=== PATIENT | female | born 1965 | race Two or more races ===

== ENCOUNTER 2018-01-08 18:05 | Emergency (ER) | payer OTHER ==
[2018-01-08] MEDS ORDERED: ASPIRIN 81 MG TABLET, CHEWABLE PO ONE (19:01)
--- NOTE | 2018-01-08 19:01 | ER Document Report ---
ED Medical Screen (RME) - General Chief Complaint: Chest Pain Stated Complaint: CHEST PAIN Time Seen by Provider: 01/08/18 18:58 Notes: Patient is having an episode of palpitations that started about an hour and a half ago. Her symptoms include breathing fast, nausea, and vomited here in the ER. She has had this problem in the past, the most recent episode being in September of this year. She has severe hypertension for which she is currently on clonidine, amlodipine, and Irbasartin. Patient is very anxious. TRAVEL OUTSIDE OF THE [place] IN LAST 30 DAYS: No - Related Data Allergies/Adverse Reactions: No Known Allergies Allergy (Unverified 01/08/18 18:09) Past Medical History Renal/ Medical History: Denies: Hx Peritoneal Dialysis Physical Exam - Vital signs Vitals: Temp Pulse Resp BP Pulse Ox 98.8 F 102 H 14 148/84 H 96 01/08/18 18:18 01/08/18 18:18 01/08/18 18:18 01/08/18 18:18 01/08/18 18:18 Course - Vital Signs Vital signs: Temp Pulse Resp BP Pulse Ox 98.8 F 102 H 14 148/84 H 96 01/08/18 18:18 01/08/18 18:18 01/08/18 18:18 01/08/18 18:18 01/08/18 18:18 - Laboratory Result Diagrams: 01/08/18 19:09 01/08/18 19:09 Laboratory results interpreted by me: 01/08/18 19:09 Potassium 3.5 L Glucose 194 H Total Protein 8.5 H Doctor's Discharge - Discharge Referrals: BELEN LAND MD [Primary Care Provider] - Follow up as needed
[2018-01-08 19:23] LABS: ABSOLUTE LYMPHOCYTES (AUTO) 1.7 10^3/uL (0.5-4.7); ABSOLUTE MONOCYTES (AUTO) 0.5 10^3/uL (0.1-1.4); ABSOLUTE NEUT (AUTO) 5.4 10^3/uL (1.7-8.2); BASOPHILS % (AUTO) 0.3 % (0-2); EOSINOPHILS % (AUTO) 0.1 % (0-6); HEMATOCRIT 44.5 % (36.0-47.0); HEMOGLOBIN 15.4 g/dL (12.0-15.5); LYMPHOCYTES % (AUTO) 22.6 % (13-45); MEAN CORPUSCULAR HEMOGLOBIN 30.1 pg (27.0-33.4); MEAN CORPUSCULAR HGB CONC 34.6 g/dL (32.0-36.0); MEAN CORPUSCULAR VOLUME 87 fl (80-97); MONOCYTES % (AUTO) 6.5 % (3-13); PLATELET COUNT 293 10^3/uL (150-450); RED BLOOD COUNT 5.12 10^6/uL (3.72-5.28); RED CELL DISTRIBUTION WIDTH 13.1 % (11.5-14.0); SEGMENTED NEUTROPHILS % (AUTO) 70.5 % (42-78); TOTAL CELLS COUNTED % (AUTO) 100 %; WHITE BLOOD COUNT 7.7 10^3/uL (4.0-10.5)
[2018-01-08 19:27] LABS: INTERNATIONAL RATION (INR) 0.93; PROTHROMBIN TIME 12.9 SEC (11.4-15.4)
[2018-01-08] MEDS ORDERED: LORAZEPAM 1 MG TABLET PO ONE (19:29)
[2018-01-08 19:32] LABS: ALANINE AMINOTRANSFERASE 28 U/L (9-52); ALBUMIN 4.9 g/dL (3.5-5.0); ALKALINE PHOSPHATASE 70 U/L (38-126); ASPARTATE AMINO TRANSFERASE 25 U/L (14-36); BILIRUBIN,DIRECT 0.3 mg/dL (0.0-0.4); BILIRUBIN,TOTAL 0.8 mg/dL (0.2-1.3); BLOOD UREA NITROGEN 14 mg/dL (7-20); CREATINE KINASE 51 U/L (30-135); GLUCOSE 194 mg/dL (75-110); POTASSIUM 3.5 mmol/L (3.6-5.0); TOTAL PROTEIN 8.5 g/dL (6.3-8.2)
[2018-01-08 19:37] LABS: CARBON DIOXIDE 22 mmol/L (22-30); CHLORIDE 102 mmol/L (98-107); SODIUM 143.2 mmol/L (137-145)
[2018-01-08 19:39] LABS: ANION GAP 19 (5-19); D-DIMER < 0.27 ug/mL (0.00-0.50)
[2018-01-08 19:45] LABS: CREATINE KINASE MB < 0.22 ng/mL (<4.55); TROPONIN I < 0.012 ng/mL
--- NOTE | 2018-01-08 19:47 | RADIOLOGY REPORT (SQ) ---
EXAM DESCRIPTION: CHEST SINGLE VIEW COMPLETED DATE/TIME: 01/08/2018 7:22 pm REASON FOR STUDY: Short of breath and tachycardia COMPARISON: None. EXAM PARAMETERS: NUMBER OF VIEWS: One view. TECHNIQUE: Single frontal radiographic view of the chest acquired. RADIATION DOSE: NA LIMITATIONS: None. FINDINGS: LUNGS AND PLEURA: No opacities, masses or pneumothorax. No pleural effusion. MEDIASTINUM AND HILAR STRUCTURES: No masses. Contour normal. HEART AND VASCULAR STRUCTURES: Heart normal in size. Normal vasculature. BONES: No acute findings. HARDWARE: None in the chest. OTHER: No other significant finding. IMPRESSION: NO ACUTE RADIOGRAPHIC FINDING IN THE CHEST. TECHNICAL DOCUMENTATION: JOB ID: [id number] 2010 [employer]- All Rights Reserved Reading location - IP/workstation name: [email or web address]
[2018-01-08 19:52] LABS: FREE T4 (FREE THYROXINE) 1.19 ng/dL (0.78-2.19)
[2018-01-08 20:03] LABS: THYROID STIMULATING HORMONE 2.27 uIU/mL (0.47-4.68)
[2018-01-08] MEDS ORDERED: ATENOLOL 50 MG TABLET PO ONE (20:15)
--- NOTE | 2018-01-08 20:21 | ER Document Report ---
ED General - General Chief Complaint: Chest Pain Stated Complaint: CHEST PAIN Time Seen by Provider: 01/08/18 18:58 Notes: Patient is a 52 year old female with a past medical history of essential hypertension, anxiety and recurrent palpitations who presents with an episode of palpitations. Although in triage her complaint was listed as chest pain the patient and her note that this is not all her concern rather an episode of palpitations this year while she was watching television with her . She states that she has for the past several years had intermittent palpitations that when she was living in the [facility] were treated with a beta-jimmy but she has been off this medication since September. She has discussed her intermittent palpitations with her primary care doctor but states that they did not wish to restart any medication at that time. She states that approximately once every 1-2 months she has not had episodes similar to the night where she spontaneously develops palpitations and then becomes anxious thereafter. She is clear to state that she does not feel anxiety is triggering these episodes but that she does become anxious in response to these episodes of palpitations. Nothing seems to trigger the episodes and they do often resolve spontaneously. She denies any associated syncope, lightheadedness, weakness, numbness or chest pain. Of note, the patient does admit to checking her blood pressure 4-5 times daily stating she does so as her parents both from strokes. At time of my assessment she states that she overall feels much better and denies any ongoing symptoms. TRAVEL OUTSIDE OF THE [place] IN LAST 30 DAYS: No - Related Data Allergies/Adverse Reactions: No Known Allergies Allergy (Unverified 01/08/18 18:09) Past Medical History - General Information source: Patient - Social History Smoking Status: Never Smoker Frequency of alcohol use: None Drug Abuse: None Lives with: Spouse/Significant other Family History: Reviewed & Not Pertinent Patient has suicidal ideation: No Patient has homicidal ideation: No - Past Medical History Cardiac Medical History: Reports: Hx Hypertension Renal/ Medical History: Denies: Hx Peritoneal Dialysis Review of Systems - Review of Systems Notes: Constitutional: Negative for fever. HENT: Negative for sore throat. Eyes: Negative for visual changes. Cardiovascular: Negative for chest pain. Positive for palpitations Respiratory: Negative for shortness of breath. Gastrointestinal: Negative for abdominal pain, vomiting or diarrhea. Genitourinary: Negative for dysuria. Musculoskeletal: Negative for back pain. Skin: Negative for rash. Neurological: Negative for headaches, weakness or numbness. 10 point ROS negative except as marked above and in HPI. Physical Exam - Vital signs Vitals: Temp Pulse Resp BP Pulse Ox 98.8 F 102 H 14 148/84 H 96 01/08/18 18:18 01/08/18 18:18 01/08/18 18:18 01/08/18 18:18 01/08/18 18:18 Interpretation: Tachycardic Notes: PHYSICAL EXAMINATION: GENERAL: Well-appearing, well-nourished and in no acute distress. HEAD: Atraumatic, normocephalic. EYES: Pupils equal round and reactive to light, extraocular movements intact, sclera anicteric, conjunctiva are normal. ENT: nares patent, oropharynx clear without exudates. Moist mucous membranes. NECK: Normal range of motion, supple without lymphadenopathy LUNGS: Breath sounds clear to auscultation bilaterally and equal. No wheezes rales or rhonchi. HEART: Regular rate and rhythm without murmurs ABDOMEN: Soft, nontender, normoactive bowel sounds. No guarding, no rebound. No masses appreciated. EXTREMITIES: Normal range of motion, no pitting or edema. No cyanosis. NEUROLOGICAL: No focal neurological deficits. Moves all extremities spontaneously and on command. PSYCH: Normal mood, normal affect. SKIN: Warm, Dry, normal turgor, no rashes or lesions noted. Course - Re-evaluation Re-evalutation: 01/08/18 20:16 Patient presents with palpitations but is in no acute distress. Vitals within normal limits at time of arrival exception of mild tachycardia which has since resolved.. EKG unremarkable with a normal sinus rhythm. Laboratories are unremarkable. Patient denies any chest pain, shortness of breath, or vomiting. At this time based on exam and history do not suspect a new onset arrhythmia, ACS, acute pulmonary embolus, aortic dissection. Labs unremarkable. Patient used to be on a beta-jimmy as needed for palpitations and associated anxiety which I will restart as an as needed medication. Patient encouraged to follow- up with their primary care physician as well as cardiology and a referral has been provided. At this time will discharge with return precautions and follow- up recommendations. Verbal discharge instructions given a the bedside and opportunity for questions given. Medication warnings reviewed. Patient is in agreement with this plan and has verbalized understanding of return precautions and the need for primary care follow-up in the next 24-72 hours. - Vital Signs Vital signs: Temp Pulse Resp BP Pulse Ox 98.8 F 102 H 14 120/83 98 01/08/18 18:18 01/08/18 18:18 01/08/18 20:00 01/08/18 20:00 01/08/18 20:00 - Laboratory Result Diagrams: 01/08/18 19:09 01/08/18 19:09 Laboratory results interpreted by me: 01/08/18 19:09 Potassium 3.5 L Glucose 194 H Total Protein 8.5 H - EKG Interpretation by Me Additional EKG results interpreted by me: 01/08/18 20:17 Sinus tachycardia. Rate 113. No ST elevations or depressions. QTC is 456. Discharge - Discharge Clinical Impression: Palpitations, Essential hypertension, Anxiety reaction Condition: Good Disposition: HOME, SELF-CARE Additional Instructions: Please follow-up with your primary care doctor or a elementary assistant teacher regarding your palpitations. Return if you develop chest pain, shortness of breath, pass out, or have any other symptoms that are worrisome to you. You can take atenolol as prescribed if you have episodes of palpitations that do not resolve after several minutes. We discussed high blood pressure today. High blood pressure is a long-term risk factor for multiple medical problems including heart attack and stroke. However, the blood pressure in of itself will not cause you to have an acute stroke or heart attack over the course of just several days or weeks. Please take your blood pressure every other morning at the same time. Please avoid checking her blood pressure multiple times daily as this does not provide any benefit to you and can cause severe stress and anxiety. Return if you develop headache, weakness, numbness, chest pain, pass out, or have any other symptoms that are concerning to you. Prescriptions: Atenolol [Tenormin] 12.5 mg PO BID PRN #30 tablet PRN Reason: Referrals: BELEN LAND MD [Primary Care Provider] - Follow up as needed GERRY FERNANDEZ MD [ACTIVE STAFF] - Follow up as needed
[2018-01-08 20:45] VITALS: BP 120/83
--- NOTE | 2018-01-08 21:08 | EKG REPORT ---
SEVERITY:- OTHERWISE NORMAL ECG - SINUS TACHYCARDIA : Confirmed by: Reid Ponce MD 08-Jan-2018 21:08:08
== END 2018-01-08 20:45 | disposition home or self-care (01) ==
LOC: ER 18:05
DX: R00.2 Palpitations (principal); I10 Essential (primary) hypertension; F41.9 Anxiety disorder, unspecified; R07.9 Chest pain, unspecified
CPT/HCPCS: 36415; 71045; 80053; 82550; 82553; 84439; 84443; 84484; 85025; 85379; 85610; 93005; 93010; 99285

== ENCOUNTER 2018-03-07 06:58 | Emergency (ER) | payer OTHER ==
--- NOTE | 2018-03-07 07:32 | ER Document Report ---
ED General - General Chief Complaint: High Blood Pressure Stated Complaint: BLOOD PRESSURE PROBLEMS Time Seen by Provider: 03/07/18 07:23 TRAVEL OUTSIDE OF THE [place] IN LAST 30 DAYS: No - HPI Patient complains to provider of: Hypertension type Notes: Patient coming in for evaluation of hypertension. Patient is prescribed blood pressure medications patient states woke up this morning with a blood pressure did take her blood pressure medication just prior to arrival. Patient otherwise resting in the stretcher stating she is feeling better now. Patient denies any hip pain chest pain abdominal pain fevers chills nausea vomiting - Related Data Allergies/Adverse Reactions: No Known Allergies Allergy (Unverified 01/08/18 18:09) Past Medical History - Social History Smoking Status: Unknown if Ever Smoked Family History: Reviewed & Not Pertinent - Past Medical History Cardiac Medical History: Reports: Hx Hypertension Renal/ Medical History: Denies: Hx Peritoneal Dialysis Review of Systems - Review of Systems Constitutional: Other - htn EENT: No symptoms reported Cardiovascular: No symptoms reported Respiratory: No symptoms reported Gastrointestinal: No symptoms reported Genitourinary: No symptoms reported Female Genitourinary: No symptoms reported Musculoskeletal: No symptoms reported Skin: No symptoms reported Hematologic/Lymphatic: No symptoms reported Neurological/Psychological: No symptoms reported Physical Exam - Vital signs Vitals: Temp Pulse Resp BP Pulse Ox 97.5 F 106 H 24 H 160/95 H 100 03/07/18 07:15 03/07/18 07:15 03/07/18 07:15 03/07/18 07:15 03/07/18 07:15 Interpretation: Normal - General General appearance: Appears well, Alert - HEENT Head: Normocephalic, Atraumatic Eyes: Normal Pupils: PERRL - Respiratory Respiratory status: No respiratory distress Chest status: Nontender Breath sounds: Normal Chest palpation: Normal - Cardiovascular Rhythm: Regular Heart sounds: Normal auscultation Murmur: No - Abdominal Inspection: Normal Distension: No distension Bowel sounds: Normal Tenderness: Nontender Organomegaly: No organomegaly - Back Back: Normal, Nontender - Extremities General upper extremity: Normal inspection, Nontender, Normal color, Normal ROM , Normal temperature General lower extremity: Normal inspection, Nontender, Normal color, Normal ROM , Normal temperature, Normal weight bearing. No: Carline's sign - Neurological Neuro grossly intact: Yes Cognition: Normal Orientation: AAOx4 Jorge Coma Scale Eye Opening: Spontaneous Sandoval Coma Scale Verbal: Oriented Jorge Coma Scale Motor: Obeys Commands Jorge Coma Scale Total: 15 Speech: Normal Motor strength normal: LUE, RUE, LLE, RLE Sensory: Normal - Psychological Associated symptoms: Normal affect, Normal mood - Skin Skin Temperature: Warm Skin Moisture: Dry Skin Color: Normal Course - Re-evaluation Re-evalutation: 03/07/18 14:59 No concerning findings on physical examination. Patient will be discharged on follow-up primary care physician. - Vital Signs Vital signs: Temp Pulse Resp BP Pulse Ox 97.8 F 82 21 H 155/80 H 99 03/07/18 08:33 03/07/18 08:33 03/07/18 08:33 03/07/18 08:33 03/07/18 08:33 Discharge - Discharge Clinical Impression: Hypertension Qualifiers: Hypertension type: essential hypertension Qualified Code(s): I10 - Essential ( primary) hypertension Disposition: HOME, SELF-CARE Instructions: High Blood Pressure ([facility]) Additional Instructions: Follow-up with your primary care physician. Your physical examination does not show any acute abnormal 3. Follow-up with your primary care physician or your follow-up appointments for further management of your blood pressure medication. Please continue all previously prescribed medications as directed by her doctor Referrals: BELEN LAND MD [Primary Care Provider] - Follow up as needed
[2018-03-07 08:34] VITALS: BP 155/80
== END 2018-03-07 08:00 | disposition home or self-care (01) ==
LOC: ER 06:58
DX: I10 Essential (primary) hypertension (principal)
CPT/HCPCS: 99283

== ENCOUNTER 2018-04-03 18:32 | Emergency (ER) | payer OTHER ==
--- NOTE | 2018-04-03 19:33 | ER Document Report ---
ED Medical Screen (RME) - General Chief Complaint: Shortness Of Breath Stated Complaint: RAPID HEART RATE Time Seen by Provider: 04/03/18 19:20 TRAVEL OUTSIDE OF THE [place] IN LAST 30 DAYS: No - HPI Notes: 04/03/18 19:30 Patient is a 52-year-old female with a history of essential hypertension, intermittent episodes of palpitations, and anxiety who presents to the ED complaining of having another episode of palpitations prior to arrival. Patient states that she did have symptoms during her initial stay in the waiting room, but symptoms have since improved and she is starting to feel better. Patient states that she has not had any pain and denies any other significant cardiac history. 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 Patient states that she does check her blood pressure and when she feels that her blood pressure is up her heart rate starts to increase. She is on atenolol. No other concerns or complaints. Denies any headache, fever, URI, sore throat, chest pain, syncope, cough, shortness of breath, wheeze, dyspnea, abdominal pain, nausea/vomiting/diarrhea, urinary retention, dysuria, hematuria, or rash. I have treated and performed a rapid initial assessment of this patient. A comprehensive ED assessment and evaluation of the patient, analysis of test results and completion of medical decision making process will be conducted by additional ED providers. PHYSICAL EXAMINATION: HR currently 76 on exam. GENERAL: Well-appearing, well-nourished and in no acute distress. A&Ox4. Answers questions appropriately. LUNGS: Breath sounds clear to auscultation bilaterally and equal. No wheezes rales or rhonchi. HEART: Regular rate and rhythm without murmurs, rubs, gallops. Extremities: No cyanosis, clubbing, or edema b/l. NEUROLOGICAL: Normal speech, normal gait. PSYCH: tearful, normal affect. - Related Data Allergies/Adverse Reactions: No Known Allergies Allergy (Unverified 01/08/18 18:09) Past Medical History - Social History Chew tobacco use (# tins/day): No Frequency of alcohol use: None Drug Abuse: None - Past Medical History Cardiac Medical History: Reports: Hx Hypertension Renal/ Medical History: Denies: Hx Peritoneal Dialysis Physical Exam - Vital signs Vitals: Temp Pulse Resp BP Pulse Ox 97.9 F 94 28 H 155/86 H 100 04/03/18 18:40 04/03/18 18:40 04/03/18 18:40 04/03/18 18:40 04/03/18 18:40 Course - Vital Signs Vital signs: Temp Pulse Resp BP Pulse Ox 97.9 F 94 28 H 155/86 H 100 04/03/18 18:40 04/03/18 18:40 04/03/18 18:40 04/03/18 18:40 04/03/18 18:40 Doctor's Discharge - Discharge Referrals: BELEN LAND MD [Primary Care Provider] - Follow up as needed
--- NOTE | 2018-04-03 19:52 | RADIOLOGY REPORT (SQ) ---
EXAM DESCRIPTION: CHEST SINGLE VIEW COMPLETED DATE/TIME: 04/03/2018 7:40 pm REASON FOR STUDY: shortness of breath COMPARISON: 01/08/2018. EXAM PARAMETERS: NUMBER OF VIEWS: One view. TECHNIQUE: Single frontal radiographic view of the chest acquired. RADIATION DOSE: NA LIMITATIONS: None. FINDINGS: LUNGS AND PLEURA: No opacities, masses or pneumothorax. No pleural effusion. MEDIASTINUM AND HILAR STRUCTURES: No masses. Contour normal. HEART AND VASCULAR STRUCTURES: Heart normal in size. Normal vasculature. BONES: No acute findings. HARDWARE: None in the chest. OTHER: No other significant finding. IMPRESSION: NO ACUTE RADIOGRAPHIC FINDING IN THE CHEST. TECHNICAL DOCUMENTATION: JOB ID: [id number] [employer]- All Rights Reserved Reading location - IP/workstation name: [email or web address]
[2018-04-03 20:53] LABS: ABSOLUTE LYMPHOCYTES (AUTO) 1.1 10^3/uL (0.5-4.7); ABSOLUTE MONOCYTES (AUTO) 0.6 10^3/uL (0.1-1.4); ABSOLUTE NEUT (AUTO) 10.3 10^3/uL (1.7-8.2); BASOPHILS % (AUTO) 0.2 % (0-2); EOSINOPHILS % (AUTO) 0.1 % (0-6); HEMATOCRIT 42.8 % (36.0-47.0); HEMOGLOBIN 14.3 g/dL (12.0-15.5); LYMPHOCYTES % (AUTO) 9.3 % (13-45); MEAN CORPUSCULAR HEMOGLOBIN 29.7 pg (27.0-33.4); MEAN CORPUSCULAR HGB CONC 33.5 g/dL (32.0-36.0); MEAN CORPUSCULAR VOLUME 89 fl (80-97); MONOCYTES % (AUTO) 5.2 % (3-13); PLATELET COUNT 273 10^3/uL (150-450); RED BLOOD COUNT 4.82 10^6/uL (3.72-5.28); RED CELL DISTRIBUTION WIDTH 12.7 % (11.5-14.0); SEGMENTED NEUTROPHILS % (AUTO) 85.2 % (42-78); TOTAL CELLS COUNTED % (AUTO) 100 %; WHITE BLOOD COUNT 12.1 10^3/uL (4.0-10.5)
[2018-04-03 21:14] LABS: APPEARANCE,URINE CLEAR; BILIRUBIN,URINE NEGATIVE (NEGATIVE); COLOR,URINE YELLOW; GLUCOSE, URINE NEGATIVE (NEGATIVE); KETONES,URINE TRACE mg/dL (NEGATIVE); LEUKOCYTE ESTERASE,URINE SMALL (NEGATIVE); NITRITE,URINE NEGATIVE (NEGATIVE); PROTEIN,URINE NEGATIVE (NEGATIVE); URINE SPECIFIC GRAVITY 1.011; UROBILINOGEN,URINE NEGATIVE mg/dL (<2.0)
[2018-04-03 21:29] LABS: ALANINE AMINOTRANSFERASE 23 U/L (9-52); ALBUMIN 4.4 g/dL (3.5-5.0); ALKALINE PHOSPHATASE 67 U/L (38-126); ANION GAP 13 (5-19); ASPARTATE AMINO TRANSFERASE 27 U/L (14-36); BILIRUBIN,DIRECT 0.3 mg/dL (0.0-0.4); BILIRUBIN,TOTAL 0.7 mg/dL (0.2-1.3); BLOOD UREA NITROGEN 19 mg/dL (7-20); CALCIUM 9.6 mg/dL (8.4-10.2); CARBON DIOXIDE 26 mmol/L (22-30); CHLORIDE 104 mmol/L (98-107); GLUCOSE 110 mg/dL (75-110); PHOSPHORUS 4.1 mg/dL (2.5-4.5); POTASSIUM 4.6 mmol/L (3.6-5.0); SODIUM 142.8 mmol/L (137-145)
--- NOTE | 2018-04-03 23:59 | ER Document Report ---
ED General - General Chief Complaint: Palpitations Stated Complaint: RAPID HEART RATE Time Seen by Provider: 04/03/18 19:20 Notes: Patient is a 52 year old female with a past medical history of hypertension, recurrent palpitations who presents with an episode of palpitations with associated shortness of breath prior to arrival. She states that her symptoms have now resolved after she took clonidine and atenolol. She has a history of recurrent similar symptoms in the past. She states that her symptoms have overall been improved since she was restarted on atenolol by me 3 months ago. On my initial assessment the patient denies any ongoing symptoms other than feeling hungry. She denies any chest pain during today's episode. Nothing seemed to trigger the episode and it did resolve after taking her blood pressure medications. She has not contacted her primary care doctor regarding today's concerns. TRAVEL OUTSIDE OF THE [place] IN LAST 30 DAYS: No - Related Data Allergies/Adverse Reactions: No Known Allergies Allergy (Unverified 01/08/18 18:09) Past Medical History - General Information source: Patient - Social History Smoking Status: Never Smoker Chew tobacco use (# tins/day): No Frequency of alcohol use: None Drug Abuse: None Lives with: Spouse/Significant other Family History: Reviewed & Not Pertinent Patient has suicidal ideation: No Patient has homicidal ideation: No - Past Medical History Cardiac Medical History: Reports: Hx Hypertension Renal/ Medical History: Denies: Hx Peritoneal Dialysis Review of Systems - Review of Systems Notes: Constitutional: Negative for fever. HENT: Negative for sore throat. Eyes: Negative for visual changes. Cardiovascular: Positive for palpitations Respiratory: Negative for shortness of breath. Gastrointestinal: Negative for abdominal pain, vomiting or diarrhea. Genitourinary: Negative for dysuria. Musculoskeletal: Negative for back pain. Skin: Negative for rash. Neurological: Negative for headaches, weakness or numbness. 10 point ROS negative except as marked above and in HPI. Physical Exam - Vital signs Vitals: Temp Pulse Resp BP Pulse Ox 97.9 F 94 28 H 155/86 H 100 04/03/18 18:40 04/03/18 18:40 04/03/18 18:40 04/03/18 18:40 04/03/18 18:40 Interpretation: Hypertensive Notes: PHYSICAL EXAMINATION: GENERAL: Well-appearing, well-nourished and in no acute distress. HEAD: Atraumatic, normocephalic. EYES: Pupils equal round and reactive to light, extraocular movements intact, sclera anicteric, conjunctiva are normal. ENT: nares patent, oropharynx clear without exudates. Moist mucous membranes. NECK: Normal range of motion, supple without lymphadenopathy LUNGS: Breath sounds clear to auscultation bilaterally and equal. No wheezes rales or rhonchi. HEART: Regular rate and rhythm without murmurs ABDOMEN: Soft, nontender, normoactive bowel sounds. No guarding, no rebound. No masses appreciated. EXTREMITIES: Normal range of motion, no pitting or edema. No cyanosis. NEUROLOGICAL: No focal neurological deficits. Moves all extremities spontaneously and on command. PSYCH: Anxious SKIN: Warm, Dry, normal turgor, no rashes or lesions noted. Course - Re-evaluation Re-evalutation: 04/03/18 23:57 Patient presents with palpitations but is in no acute distress. Vitals within normal limits at time of arrival. EKG unremarkable with a normal sinus rhythm. Laboratories are unremarkable. Patient denies any chest pain, shortness of breath, or vomiting. At this time based on exam and history do not suspect a new onset arrhythmia, ACS, acute pulmonary embolus, aortic dissection. Patient' s symptoms do seem to be very consistent with possible anxiety as she had an event was in room which she said that she felt similar to how she had felt prior to coming the hospital, repeatedly asked me if her blood pressure was high or if her heart rate was high although on continuous telemetry her heart rate was 70, regular and her blood pressure was 133 on 83. Patient encouraged to follow-up with their primary care physician as well as cardiology and a referral has been provided. At this time will discharge with return precautions and follow-up recommendations. Verbal discharge instructions given a the bedside and opportunity for questions given. Medication warnings reviewed. Patient is in agreement with this plan and has verbalized understanding of return precautions and the need for primary care follow-up in the next 24-72 hours. - Vital Signs Vital signs: Temp Pulse Resp BP Pulse Ox 97.9 F 71 16 129/80 H 99 04/03/18 18:40 04/04/18 00:50 04/04/18 00:50 04/04/18 00:50 04/04/18 00:50 - Laboratory Result Diagrams: 04/03/18 20:30 04/03/18 20:30 Laboratory results interpreted by me: 04/03/18 04/03/18 04/03/18 20:30 20:30 20:30 WBC 12.1 H Seg Neutrophils % 85.2 H Lymphocytes % 9.3 L Absolute Neutrophils 10.3 H Est GFR (Non-Af Amer) 56 L Urine Ketones TRACE H Ur Leukocyte Esterase SMALL H - Diagnostic Test Radiology reviewed: Image reviewed, Reports reviewed Radiology results interpreted by me: 04/03/18 23:57 Chest x-ray: No acute infiltrate pneumothorax - EKG Interpretation by Me Additional EKG results interpreted by me: 04/04/18 03:04 Sinus rhythm. Rate 60. No ST elevations or depressions. QTC is 444. Discharge - Discharge Clinical Impression: Palpitations, Anxiety reaction Condition: Good Disposition: HOME, SELF-CARE Additional Instructions: Please follow-up with your primary care doctor or a application trainer regarding your palpitations. Return if you develop chest pain, shortness of breath, pass out, or have any other symptoms that are worrisome to you. Referrals: BELEN LAND MD [ACTIVE STAFF] - Follow up as needed
[2018-04-04] MEDS ORDERED: LORAZEPAM 1 MG TABLET PO ONE
[2018-04-04 01:44] VITALS: BP 129/80
--- NOTE | 2018-04-04 07:59 | EKG REPORT ---
SEVERITY:- NORMAL ECG - SINUS RHYTHM : Confirmed by: Kenyatta Nunn MD 04-Apr-2018 07:59:04
== END 2018-04-04 00:50 | disposition home or self-care (01) ==
LOC: ER 18:32
DX: F41.1 Generalized anxiety disorder (principal); R00.2 Palpitations; I10 Essential (primary) hypertension; R06.02 Shortness of breath; Z79.899 Other long term (current) drug therapy
CPT/HCPCS: 36415; 71045; 80053; 81001; 83735; 84100; 84443; 85025; 93005; 93010; 99285

== ENCOUNTER 2018-09-06 20:36 | Emergency (ER) | payer OTHER ==
--- NOTE | 2018-09-06 23:03 | ER Document Report ---
ED General - General Chief Complaint: High Blood Pressure Stated Complaint: HIGH BLOOD PRESSURE/NECK PAIN Time Seen by Provider: 09/06/18 22:54 Notes: Patient is a 53-year-old female with hypertension that presents to the emergency department for chief complaint of elevated blood pressure. Patient states that she has been rather stressed and had decreased sleep and anxiety because her 's in the hospital, and is having liver failure, she is been trying to sleep in the hospital but has not had any sleep in the last 3 days. She does take atenolol and irbesartan for her blood pressure, she did take her medication today. She does take her home blood pressure, noticed that it was 190 systolic, and this concerned her so she wanted to have herself checked out in the emergency department. She denies having any headaches confusion, chest pain, shortness of breath, difficulty breathing, leg swelling, changes in her urinary patterns, foam in the urine, or decreased urine. Past Medical History: Hypertension Past Surgical History: Denies surgical history Social History: Denies tobacco, alcohol or illicit drug use. Family History: Reviewed and noncontributory for presenting illness Allergies: Reviewed, see documented allergy list. REVIEW OF SYSTEMS: Other than noted above, the 12 point review of systems was reviewed with the patient and were negative, all pertinent findings are included in the HPI. PHYSICAL EXAMINATION: Vital signs reviewed, nursing noted reviewed. GENERAL: Well-appearing, well-nourished and in no acute distress. HEAD: Atraumatic, normocephalic. EYES: Eyes appear normal, extraocular movements intact, sclera anicteric, conjunctiva are normal. ENT: nares patent, oropharynx clear without exudates. Moist mucous membranes. NECK: Normal range of motion, supple without lymphadenopathy LUNGS: Breath sounds clear to auscultation bilaterally and equal. No wheezes rales or rhonchi. HEART: Regular rate and rhythm without murmurs ABDOMEN: Soft, nontender, normoactive bowel sounds. No rebound, guarding, or rigidity. No masses appreciated. EXTREMITIES: Nontender, good range of motion, no pitting or edema. NEUROLOGICAL: No focal neurological deficits. Moves all extremities spontaneously Motor and sensory grossly intact on exam. PSYCH: Normal mood, normal affect. SKIN: Warm, Dry, normal turgor, no rashes or lesions noted on exposed skin TRAVEL OUTSIDE OF THE [place] IN LAST 30 DAYS: No - Related Data Allergies/Adverse Reactions: No Known Allergies Allergy (Verified 09/06/18 20:39) Past Medical History - Social History Smoking Status: Never Smoker Family History: Reviewed & Not Pertinent - Past Medical History Cardiac Medical History: Reports: Hx Hypertension Renal/ Medical History: Denies: Hx Peritoneal Dialysis Physical Exam - Vital signs Vitals: Temp Pulse Resp BP Pulse Ox 97.7 F 102 H 18 173/88 H 100 09/06/18 20:44 09/06/18 20:44 09/06/18 20:44 09/06/18 20:44 09/06/18 20:44 Course - Re-evaluation Re-evalutation: I discussed with the patient at length, and educated her, on managing her blood pressure, that it would need to be further managed as an outpatient, no need for acute intervention at this time as she is asymptomatic, advised to follow-up with her primary care physician, I will prescribe her hydroxyzine 25 mg, to help with her stress, and aid in her sleep, as her is going through a hard time, and she is not been able to sleep, patient was agreeable to this plan of care, will be discharged home. - Vital Signs Vital signs: Temp Pulse Resp BP Pulse Ox 97.7 F 102 H 18 173/88 H 100 09/06/18 20:44 09/06/18 20:44 09/06/18 20:44 09/06/18 20:44 09/06/18 20:44 Discharge - Discharge Clinical Impression: Elevated blood pressure reading Condition: Stable Disposition: HOME, SELF-CARE Instructions: High Blood Pressure ([facility]) Additional Instructions: Please take the prescribed medication, you can take it up to 3 times daily, to help with stress and anxiety, but he cannot drive on this medication, you should take it mainly before bed, to help with sleep. Please follow-up with your family physician, call for an appointment to have your blood pressure rechecked and possibly adjustment to your blood pressure medications. Prescriptions: Hydroxyzine Pamoate [Vistaril] 25 mg PO Q8H PRN #30 capsule PRN Reason: insomnia/anxiety Referrals: BELEN LAND MD [ACTIVE STAFF] - Follow up as needed
[2018-09-06 23:32] VITALS: BP 131/78
== END 2018-09-06 23:39 | disposition home or self-care (01) ==
LOC: ER 20:36
DX: I10 Essential (primary) hypertension (principal); Z79.899 Other long term (current) drug therapy
CPT/HCPCS: 99283

== ENCOUNTER 2018-11-25 19:04 | Emergency (ER) | payer OTHER ==
--- NOTE | 2018-11-25 19:31 | ER Document Report ---
ED Medical Screen (RME) - General Chief Complaint: High Blood Pressure Stated Complaint: BLOOD PRESSURE Time Seen by Provider: 11/25/18 19:24 Notes: RAPID MEDICAL EVALUATION DISCLOSURE I have seen this patient as part of a Rapid Medical Evaluation and, if applicable, placed any initially appropriate orders. The patient will be seen and fully evaluated, including a full history and physical exam, by a provider (in Main ED or Fast Track) when a room becomes available. 53-year-old female PMH hypertension here with complaints of palpitations that started about 30 minutes ago. She states the when she started to feel this way, she checked her blood pressure and it was in the 180s systolic and her heart rate was about 148. She took 1 sublingual Catapres pill and states that this did help to improve the symptoms some. She does report a history of "irregular heartbeat" but states that this is usually associated with her palpitations. She denies any chest pain discomfort or tightness. She has missed some doses of her blood pressure medication over the past 1 month. EXAM CTAB RRR TRAVEL OUTSIDE OF THE [place] IN LAST 30 DAYS: No - Related Data Allergies/Adverse Reactions: No Known Allergies Allergy (Verified 11/25/18 19:05) Past Medical History - Social History Chew tobacco use (# tins/day): No Frequency of alcohol use: None Drug Abuse: None - Past Medical History Cardiac Medical History: Reports: Hx Hypertension Renal/ Medical History: Denies: Hx Peritoneal Dialysis Physical Exam - Vital signs Vitals: Temp Pulse Resp BP Pulse Ox 98.2 F 95 18 158/78 H 97 11/25/18 19:14 11/25/18 19:14 11/25/18 19:14 11/25/18 19:14 11/25/18 19:14 Course - Vital Signs Vital signs: Temp Pulse Resp BP Pulse Ox 98.2 F 95 18 158/78 H 97 11/25/18 19:14 11/25/18 19:14 11/25/18 19:14 11/25/18 19:14 11/25/18 19:14
[2018-11-25 19:55] LABS: ABSOLUTE EOSINOPHILS # (AUTO) 0.1 10^3/uL (0.0-0.6); ABSOLUTE LYMPHOCYTES (AUTO) 1.8 10^3/uL (0.5-4.7); ABSOLUTE MONOCYTES (AUTO) 0.7 10^3/uL (0.1-1.4); ABSOLUTE NEUT (AUTO) 5.1 10^3/uL (1.7-8.2); BASOPHILS % (AUTO) 0.5 % (0-2); EOSINOPHILS % (AUTO) 0.7 % (0-6); HEMATOCRIT 41.8 % (36.0-47.0); HEMOGLOBIN 14.1 g/dL (12.0-15.5); MEAN CORPUSCULAR HEMOGLOBIN 29.6 pg (27.0-33.4); MEAN CORPUSCULAR HGB CONC 33.7 g/dL (32.0-36.0); MEAN CORPUSCULAR VOLUME 88 fl (80-97); MONOCYTES % (AUTO) 8.7 % (3-13); PLATELET COUNT 261 10^3/uL (150-450); RED BLOOD COUNT 4.75 10^6/uL (3.72-5.28); RED CELL DISTRIBUTION WIDTH 13.2 % (11.5-14.0); SEGMENTED NEUTROPHILS % (AUTO) 67.1 % (42-78); TOTAL CELLS COUNTED % (AUTO) 100 %; WHITE BLOOD COUNT 7.6 10^3/uL (4.0-10.5)
[2018-11-25 19:59] LABS: APPEARANCE,URINE CLEAR; BILIRUBIN,URINE NEGATIVE (NEGATIVE); COLOR,URINE STRAW; GLUCOSE, URINE NEGATIVE (NEGATIVE); KETONES,URINE NEGATIVE (NEGATIVE); LEUKOCYTE ESTERASE,URINE NEGATIVE (NEGATIVE); NITRITE,URINE NEGATIVE (NEGATIVE); PROTEIN,URINE NEGATIVE (NEGATIVE); URINE SPECIFIC GRAVITY 1.005; UROBILINOGEN,URINE NEGATIVE mg/dL (<2.0)
[2018-11-25 20:08] LABS: ALANINE AMINOTRANSFERASE 24 U/L (9-52); ALBUMIN 4.5 g/dL (3.5-5.0); ALKALINE PHOSPHATASE 77 U/L (38-126); ANION GAP 13 (5-19); ASPARTATE AMINO TRANSFERASE 28 U/L (14-36); BILIRUBIN,DIRECT 0.2 mg/dL (0.0-0.4); BILIRUBIN,TOTAL 0.5 mg/dL (0.2-1.3); BLOOD UREA NITROGEN 19 mg/dL (7-20); CALCIUM 9.8 mg/dL (8.4-10.2); CARBON DIOXIDE 21 mmol/L (22-30); CHLORIDE 105 mmol/L (98-107); GLUCOSE 151 mg/dL (75-110); POTASSIUM 4.1 mmol/L (3.6-5.0); SODIUM 139.2 mmol/L (137-145); TOTAL PROTEIN 7.6 g/dL (6.3-8.2)
[2018-11-25 20:13] LABS: URINE AMPHETAMINES SCREEN NEGATIVE; URINE BARBITURATES SCREEN NEGATIVE; URINE BENZODIAZEPINES SCREEN NEGATIVE; URINE COCAINE SCREEN NEGATIVE; URINE MARIJUANA (THC) SCREEN NEGATIVE; URINE METHADONE SCREEN NEGATIVE; URINE PHENCYCLIDINE SCREEN NEGATIVE
--- NOTE | 2018-11-25 20:38 | ER Document Report ---
ED General - General Chief Complaint: High Blood Pressure Stated Complaint: BLOOD PRESSURE Time Seen by Provider: 11/25/18 19:24 Primary Care Provider: JAN KING MD [ACTIVE STAFF] - Follow up in 1 week Notes: Patient is a 53-year-old female that comes to the emergency department for chief complaint of palpitations, anxiety, and problems with her blood pressure. She states that she felt like she was having an elevated heart rate, she checked her pulse and blood pressure, she found her blood pressure was elevated and her pulse was also elevated, at first she gives me the numbers 190/120 for the blood pressure in 140s with a heart rate, however she states this was the numbers last time she was seen for it and she is uncertain of the numbers at this time. She denies chest pain, dizziness, headache, shortness of breath. She denies any current symptoms. She states she has a problem with anxiety, she has had trouble sleeping intermittently. She is here visiting a friend. She is medicated for her blood pressure including atenolol, irbesartan, and as needed Catapres. She states she is out of the Catapres and she is hoping for a prescription of this today. TRAVEL OUTSIDE OF THE [place] IN LAST 30 DAYS: No - Related Data Allergies/Adverse Reactions: No Known Allergies Allergy (Verified 11/25/18 19:05) Past Medical History - General Information source: Patient - Social History Smoking Status: Never Smoker Chew tobacco use (# tins/day): No Frequency of alcohol use: None Drug Abuse: None Lives with: Friend Family History: Reviewed & Not Pertinent Patient has suicidal ideation: No Patient has homicidal ideation: No - Past Medical History Cardiac Medical History: Reports: Hx Hypertension Renal/ Medical History: Denies: Hx Peritoneal Dialysis - Immunizations Immunizations up to date: Yes Hx Diphtheria, Pertussis, Tetanus Vaccination: Yes Review of Systems - Review of Systems Constitutional: No symptoms reported EENT: No symptoms reported Cardiovascular: See HPI Respiratory: No symptoms reported Gastrointestinal: No symptoms reported Genitourinary: No symptoms reported Female Genitourinary: No symptoms reported Musculoskeletal: No symptoms reported Skin: No symptoms reported Hematologic/Lymphatic: No symptoms reported Neurological/Psychological: See HPI Physical Exam - Vital signs Vitals: Temp Pulse Resp BP Pulse Ox 98.2 F 95 18 158/78 H 97 11/25/18 19:14 11/25/18 19:14 11/25/18 19:14 11/25/18 19:14 11/25/18 19:14 - Notes Notes: GENERAL: Alert, interacts well. No acute distress. HEAD: Normocephalic, atraumatic. EYES: Pupils equal, round, and reactive to light. Extraocular movements intact. ENT: Oral mucosa moist, tongue midline. Oropharynx unremarkable. Airway patent. Nares patent, no nasal septal hematoma, TM's intact. NECK: Full range of motion. Supple. Trachea midline. LUNGS: Clear to auscultation bilaterally, no wheezes, rales, or rhonchi. No respiratory distress. HEART: Regular rate and rhythm. No murmur ABDOMEN: Soft, non-tender. Non-distended. Bowel sounds present in all 4 quadrants. GENITOURINARY: Deferred EXTREMITIES: Moves all 4 extremities spontaneously. No edema, normal radial and dorsalis pedis pulses bilaterally. No cyanosis. BACK: no cervical, thoracic, lumbar midline tenderness. No saddle anesthesia, normal distal neurovascular exam. NEUROLOGICAL: Alert and oriented x3. Normal speech. [cranial nerves II through XII grossly intact]. PSYCH: Mildly anxious and easily emotional SKIN: Warm, dry, normal turgor. No rashes or lesions noted. Course - Re-evaluation Re-evalutation: Patient has a subconjunctival hemorrhage on the left, she states that prior to coming to the emergency department she was seen by ophthalmology who cleared her. Her neurological exam is normal. Patient was initially anxious and spoke rapidly, however after discussion with her she became at first tearful and then grateful. She states she feels stressed out from the traveling, she misses her , however she denies SI or HI. She states she feels if she slept better and had something to take as needed for anxiety she would do better. She specifically requested Vistaril, she has had this in the past. She was provided with this in addition to her clonidine request. Despite the long distance travel patient does not have any lower extremity swelling, shortness of breath, and she has not had a a syncopal episode with the palpitations described. I have a low suspicion of pulmonary embolism, ACS, or aortic dissection based on her benign symptoms and presentation. EKG, CBC, chemistry, urine drug screen, TSH all reviewed and unremarkable. Her blood sugar is borderline high, however she states she has had this in the past and she is getting this checked and close follow-up. However she also does request a different primary care for referral, she is provided with this. I discussed details of workup with patient and friend at bedside. On monitoring patient has not had any concerning abnormalities noted. Patient has had no symptoms here. She has not had any chest pain. She is requesting to go home. Discussed follow-up and return precautions. Patient states satisfaction and agreement. - Vital Signs Vital signs: Temp Pulse Resp BP Pulse Ox 98.1 F 95 19 128/79 H 97 11/25/18 21:15 11/25/18 19:14 11/25/18 21:15 11/25/18 21:15 11/25/18 21:15 - Laboratory Result Diagrams: 11/25/18 19:43 11/25/18 19:43 Laboratory results interpreted by me: 11/25/18 11/25/18 19:43 19:43 Carbon Dioxide 21 L Glucose 151 H Urine Blood SMALL H Discharge - Discharge Clinical Impression: Essential hypertension, Palpitations, Anxiety Condition: Stable Disposition: HOME, SELF-CARE Additional Instructions: Your blood pressure here tonight suggests you are well medicated. You have been provided with a refill of Catapres to take as needed as you were instructed (if your systolic blood pressure is greater than 180, as needed). Continue current medications for blood pressure and follow-up with primary care, see primary care referral. Your laboratory workup, EKG, and examination did not show any concerning findings at this time. You have been provided with Vistaril to take as needed for sleep/anxiety. Return if you worsen including severe headache, difficulty breathing, passing out, chest pain, or any other concerning or worsening symptoms. Prescriptions: Clonidine HCl [Clonidine HCl ER] 0.75 mcg PO Q12 PRN #30 tab.er.12h PRN Reason: Hydroxyzine Pamoate [Vistaril 25 mg Capsule] 1 - 2 cap PO ASDIR PRN #30 capsule PRN Reason: Referrals: JAN KING MD [ACTIVE STAFF] - Follow up in 1 week
[2018-11-25] MEDS ORDERED: HYDROXYZINE PAMOATE 25 MG CAPSULE (4 CAP/ER DISP) PO PRN (21:00)
[2018-11-25 21:30] VITALS: BP 128/79
--- NOTE | 2018-11-25 22:44 | EKG REPORT ---
SEVERITY:- NORMAL ECG - SINUS RHYTHM : Confirmed by: Reid Ponce MD 25-Nov-2018 22:43:48
== END 2018-11-25 21:30 | disposition home or self-care (01) ==
LOC: ER 19:04
DX: I10 Essential (primary) hypertension (principal); Z79.899 Other long term (current) drug therapy; F41.9 Anxiety disorder, unspecified; R00.2 Palpitations; H11.32 Conjunctival hemorrhage, left eye
CPT/HCPCS: 93005; 99283; 36415; 83735; 84443; 85025; 80053; 81001; 84484; 80307; 93010; J3490

== ENCOUNTER 2019-01-31 00:24 | Emergency (ER) | payer OTHER ==
[2019-01-31 00:52] VITALS: BP 137/67
== END 2019-01-31 00:40 | disposition left against medical advice (07) ==
LOC: ER 00:24
DX: Z53.21 Procedure and treatment not carried out due to patient leaving prior to being seen by health care provider (principal); I10 Essential (primary) hypertension

== ENCOUNTER → 2019-03-16 | Outpatient (CLI) | payer OTHER ==
--- NOTE | 2019-03-16 10:05 | RADIOLOGY REPORT (SQ) ---
EXAM DESCRIPTION: SHOULDER LEFT 2 OR MORE VIEWS COMPLETED DATE/TIME: 03/16/2019 9:43 am REASON FOR STUDY: ACUTE PAIN IN LT SHOULDER; CERVICAL RADICULOPATHY M25.512 PAIN IN LEFT SHOULDER M 54.12 RADICULOPATHY, CERVICAL REGION COMPARISON: None. NUMBER OF VIEWS: Three views. TECHNIQUE: Internal rotation, external rotation, and Y view images acquired of the left shoulder. LIMITATIONS: None. FINDINGS: MINERALIZATION: Normal. BONES: No acute fracture. No worrisome bone lesions. JOINTS: No glenohumeral malalignment. No widening at the acromioclavicular joint VISUALIZED LUNGS AND RIBS: No pneumothorax. No rib fracture. SOFT TISSUES: No radiopaque foreign body. OTHER: No other significant finding. IMPRESSION: NEGATIVE STUDY OF THE LEFT SHOULDER. NO RADIOGRAPHIC EVIDENCE OF ACUTE INJURY. TECHNICAL DOCUMENTATION: JOB ID: [id number] [employer]- All Rights Reserved Reading location - IP/workstation name: [email or web address]
--- NOTE | 2019-03-16 10:07 | RADIOLOGY REPORT (SQ) ---
EXAM DESCRIPTION: C SP 4 OR 5 VIEWS COMPLETED DATE/TIME: 03/16/2019 9:43 am REASON FOR STUDY: ACUTE PAIN IN LT SHOULDER; CERVICAL RADICULOPATHY M25.512 PAIN IN LEFT SHOULDER M 54.12 RADICULOPATHY, CERVICAL REGION COMPARISON: None. NUMBER OF VIEWS: Five views. TECHNIQUE: AP, lateral, obliques and odontoid radiographic images acquired of the cervical spine. LIMITATIONS: None. FINDINGS: MINERALIZATION: Osteopenic ALIGNMENT: Anatomic. VERTEBRAE: Vertebral bodies of normal height. DISCS: No significant osteophytes or sclerosis. Disc height maintained. FORAMINA: No osteophytes or foraminal narrowing. LATERAL AND POSTERIOR ELEMENTS: Facets, lateral masses and spinous processes without significant find ings. HARDWARE: None in the spine. SOFT TISSUES: No masses or calcifications. Lung apices clear. OTHER: No other significant finding. IMPRESSION: NO SIGNIFICANT RADIOGRAPHIC FINDING IN THE CERVICAL SPINE. TECHNICAL DOCUMENTATION: JOB ID: [id number] [employer]- All Rights Reserved Reading location - IP/workstation name: [email or web address]
== END ==
LOC: OD 09:09
PROVIDERS: ATTEND Family Medicine
DX: M25.512 Pain in left shoulder (principal); M54.12 Radiculopathy, cervical region
CPT/HCPCS: 72050

== ENCOUNTER 2019-05-12 01:48 | Emergency (ER) | payer OTHER ==
[2019-05-12 02:23] LABS: APPEARANCE,URINE CLEAR; BILIRUBIN,URINE NEGATIVE (NEGATIVE); COLOR,URINE COLORLESS; GLUCOSE, URINE NEGATIVE (NEGATIVE); KETONES,URINE NEGATIVE (NEGATIVE); LEUKOCYTE ESTERASE,URINE NEGATIVE (NEGATIVE); NITRITE,URINE NEGATIVE (NEGATIVE); PROTEIN,URINE NEGATIVE (NEGATIVE); URINE SPECIFIC GRAVITY 1.003; UROBILINOGEN,URINE NEGATIVE mg/dL (<2.0)
[2019-05-12] MEDS: LORAZEPAM 1 MG TABLET PO ONE ×2 (03:45→03:59)
[2019-05-12 04:13] LABS: ABSOLUTE LYMPHOCYTES (AUTO) 1.3 10^3/uL (0.5-4.7); ABSOLUTE MONOCYTES (AUTO) 0.6 10^3/uL (0.1-1.4); BASOPHILS % (AUTO) 0.5 % (0-2); EOSINOPHILS % (AUTO) 0.5 % (0-6); HEMATOCRIT 38.7 % (36.0-47.0); HEMOGLOBIN 13.1 g/dL (12.0-15.5); LYMPHOCYTES % (AUTO) 16.5 % (13-45); MEAN CORPUSCULAR HEMOGLOBIN 30.1 pg (27.0-33.4); MEAN CORPUSCULAR HGB CONC 33.9 g/dL (32.0-36.0); MEAN CORPUSCULAR VOLUME 89 fl (80-97); PLATELET COUNT 223 10^3/uL (150-450); RED BLOOD COUNT 4.35 10^6/uL (3.72-5.28); RED CELL DISTRIBUTION WIDTH 12.6 % (11.5-14.0); SEGMENTED NEUTROPHILS % (AUTO) 74.5 % (42-78); TOTAL CELLS COUNTED % (AUTO) 100 %
--- NOTE | 2019-05-12 04:16 | RADIOLOGY REPORT (SQ) ---
Chest single view on 05/12/2019 at 3:17 AM CLINICAL INDICATION: Tachycardia COMPARISON: 04/03/2018 FINDINGS: The lungs are clear. Cardiac, hilar and mediastinal contours are within normal limits. Pulmonary vascularity is within normal limits. No bony abnormality is noted. IMPRESSION: No active disease.
[2019-05-12 04:31] LABS: ALBUMIN 3.8 g/dL (3.5-5.0); ALKALINE PHOSPHATASE 82 U/L (38-126); ANION GAP 7 (5-19); ASPARTATE AMINO TRANSFERASE 24 U/L (14-36); BILIRUBIN,DIRECT 0.3 mg/dL (0.0-0.4); BILIRUBIN,TOTAL 0.4 mg/dL (0.2-1.3); BLOOD UREA NITROGEN 18 mg/dL (7-20); CALCIUM 9.1 mg/dL (8.4-10.2); CARBON DIOXIDE 24 mmol/L (22-30); CHLORIDE 106 mmol/L (98-107); GLUCOSE 145 mg/dL (75-110); POTASSIUM 4.3 mmol/L (3.6-5.0); TOTAL PROTEIN 6.9 g/dL (6.3-8.2)
--- NOTE | 2019-05-12 05:16 | ER Document Report ---
ED General - General Chief Complaint: Anxiety Stated Complaint: HIGH BLOOD PRESSURE Time Seen by Provider: 05/12/19 02:49 Primary Care Provider: SARITA LEIGH DO [Primary Care Provider] - Follow up as needed Notes: Patient is a 54-year-old female presents to the emergency department for generalized anxiety. Today is the anniversary of her 's . States she was feeling very anxious and depressed today. States she feels as though her heart was racing for which she took her blood pressure. States her blood pressure was 194/120. States she took 0.1 mg of clonidine as prescribed by her primary care doctor. States she also takes metoprolol, Irbesartan, and sertraline. Patient's denying any suicidal or homicidal ideations. Patient currently is denying any complaints. States she no longer feels an xious, she no longer feels as though his heart racing. Patient states she never had chest pain or pressure. TRAVEL OUTSIDE OF THE [place] IN LAST 30 DAYS: No - Related Data Allergies/Adverse Reactions: No Known Allergies Allergy (Verified 11/25/18 19:05) Past Medical History - General Information source: Patient - Social History Smoking Status: Never Smoker Family History: Reviewed & Not Pertinent Patient has suicidal ideation: No Patient has homicidal ideation: No - Past Medical History Cardiac Medical History: Reports: Hx Hypercholesterolemia, Hx Hypertension Renal/ Medical History: Denies: Hx Peritoneal Dialysis - Immunizations Immunizations up to date: Yes Hx Diphtheria, Pertussis, Tetanus Vaccination: Yes Review of Systems - Review of Systems Constitutional: denies: Fever EENT: No symptoms reported Cardiovascular: See HPI Respiratory: denies: Cough, Hurts to breathe, Short of breath Gastrointestinal: No symptoms reported Genitourinary: No symptoms reported Female Genitourinary: No symptoms reported Musculoskeletal: No symptoms reported Skin: No symptoms reported Hematologic/Lymphatic: No symptoms reported Neurological/Psychological: See HPI Physical Exam - Vital signs Vitals: Temp Pulse Resp BP Pulse Ox 98.6 F 103 H 20 150/94 H 97 05/12/19 01:55 05/12/19 01:55 05/12/19 01:55 05/12/19 01:55 05/12/19 01:55 - Notes Notes: GENERAL: Alert, interacts well. No acute distress. HEAD: Normocephalic, atraumatic. EYES: Pupils equal, round, and reactive to light. Extraocular movements intact. ENT: Oral mucosa moist, tongue midline. NECK: Full range of motion. Supple. Trachea midline. LUNGS: Clear to auscultation bilaterally, no wheezes, rales, or rhonchi. No respiratory distress. HEART: Regular rate and rhythm. No murmur ABDOMEN: Soft, non-tender. Non-distended. Bowel sounds present in all 4 quadrants. EXTREMITIES: Moves all 4 extremities spontaneously. No edema, normal radial and dorsalis pedis pulses bilaterally. No cyanosis. BACK: no cervical, thoracic, lumbar midline tenderness. No saddle anesthesia, normal distal neurovascular exam. NEUROLOGICAL: Alert and oriented x3. Normal speech. cranial nerves II through XII grossly intact PSYCH: Normal affect, depressed mood. SKIN: Warm, dry, normal turgor. No rashes or lesions noted. Course - Re-evaluation Re-evalutation: Upon initial examination the patient when she speaks of her she starts crying. Patient states she no longer has any feelings of her rapid heart rate. States she never had a headache, shortness of breath, weakness, dizziness. States her primary care provider did place her on sertraline for generalized depression and anxiety. I did offer the patient Ativan in the emergency department. Patient wishes to decline at this time. States she no longer feels anxious because she is with friends. Laboratory 05/12/19 05/12/19 05/12/19 02:00 03:54 03:54 WBC 8.0 RBC 4.35 Hgb 13.1 Hct 38.7 MCV 89 MCH 30.1 MCHC 33.9 RDW 12.6 Plt Count 223 Lymph % (Auto) 16.5 Clare % (Auto) 8.0 Eos % (Auto) 0.5 Baso % (Auto) 0.5 Absolute Neuts (auto) 6.0 Absolute Lymphs (auto) 1.3 Absolute Monos (auto) 0.6 Absolute Eos (auto) 0.0 Absolute Basos (auto) 0.0 Seg Neutrophils % 74.5 Sodium Potassium Chloride Carbon Dioxide Anion Gap BUN Creatinine Est GFR ( Amer) Est GFR (MDRD) Non-Af Glucose Calcium Total Bilirubin Direct Bilirubin Neonat Total Bilirubin Neonat Direct Bilirubin Neonat Indirect Bili AST ALT Alkaline Phosphatase Troponin I < 0.012 Total Protein Albumin Urine Color COLORLESS Urine Appearance CLEAR Urine pH 6.0 Ur Specific [place] 1.003 Urine Protein NEGATIVE Urine Glucose (UA) NEGATIVE Urine Ketones NEGATIVE Urine Blood NEGATIVE Urine Nitrite NEGATIVE Urine Bilirubin NEGATIVE Urine Urobilinogen NEGATIVE Ur Leukocyte Esterase NEGATIVE Urine WBC (Auto) 0 Urine Bacteria (Auto) TRACE Squamous Epi Cells Auto <1 Urine Mucus (Auto) RARE Urine Ascorbic Acid NEGATIVE 05/12/19 03:54 WBC RBC Hgb Hct MCV MCH MCHC RDW Plt Count Lymph % (Auto) Clare % (Auto) Eos % (Auto) Baso % (Auto) Absolute Neuts (auto) Absolute Lymphs (auto) Absolute Monos (auto) Absolute Eos (auto) Absolute Basos (auto) Seg Neutrophils % Sodium 137.4 Potassium 4.3 Chloride 106 Carbon Dioxide 24 Anion Gap 7 BUN 18 Creatinine 0.87 Est GFR ( Amer) > 60 Est GFR (MDRD) Non-Af > 60 Glucose 145 H Calcium 9.1 Total Bilirubin 0.4 Direct Bilirubin 0.3 Neonat Total Bilirubin Not Reportable Neonat Direct Bilirubin Not Reportable Neonat Indirect Bili Not Reportable AST 24 ALT 21 Alkaline Phosphatase 82 Troponin I Total Protein 6.9 Albumin 3.8 Urine Color Urine Appearance Urine pH Ur Specific [place] Urine Protein Urine Glucose (UA) Urine Ketones Urine Blood Urine Nitrite Urine Bilirubin Urine Urobilinogen Ur Leukocyte Esterase Urine WBC (Auto) Urine Bacteria (Auto) Squamous Epi Cells Auto Urine Mucus (Auto) Urine Ascorbic Acid Chest X-Ray 05/12/19 03:03 IMPRESSION: No active disease. Patient's troponin was negative in the emergency department. Patient's EKG show s a sinus rhythm rate of 97, QTc 463, no ST segment elevations or depressions noted. Patient voices that she will talk to her primary care provider about potential Ativan for her generalized anxiety. Patient is requesting discharge at this time. At this time will discharge with return precautions and follow-up recommendations. Verbal discharge instructions given a the bedside and opportunity for questions given. Medication warnings reviewed. Patient is in agreement with this plan and has verbalized understanding of return precautions and the need for primary care follow-up in the next 24-72 hours. This medical record was dictated with voice recognizing software. There may be grammatical, syntax errors that are unintended. - Vital Signs Vital signs: Temp Pulse Resp BP Pulse Ox 98.6 F 103 H 20 150/94 H 97 05/12/19 01:55 05/12/19 01:55 05/12/19 01:55 05/12/19 01:55 05/12/19 01:55 - Laboratory Result Diagrams: 05/12/19 03:54 05/12/19 03:54 Laboratory results interpreted by me: 05/12/19 03:54 Glucose 145 H Discharge - Discharge Clinical Impression: Anxiety, Rapid heart beat Condition: Stable Disposition: HOME, SELF-CARE Instructions: Anxiety ([facility]) Additional Instructions: As we discussed you have been seen and treated in the emergency department for your generalized anxiety and high blood pressure. Please make sure you are taking your medications as prescribed. As we discussed you should talk to your primary care doctor about adding Ativan to your anxiety regimen. Please follow- up with your primary care provider in the next 24 to 48 hours. Return to the emergency room for any further concerns. Referrals: SARITA LEIGH, [Primary Care Provider] - Follow up as needed
[2019-05-12 05:47] VITALS: BP 125/57
--- NOTE | 2019-05-12 09:59 | EKG REPORT ---
SEVERITY:- NORMAL ECG - SINUS RHYTHM : Confirmed by: Reid Ponce MD 12-May-2019 09:58:24
== END 2019-05-12 05:55 | disposition home or self-care (01) ==
LOC: ER 01:48
DX: R00.2 Palpitations (principal); F41.9 Anxiety disorder, unspecified; I10 Essential (primary) hypertension
CPT/HCPCS: 36415; 71045; 80053; 81001; 84484; 85025; 93005; 93010; 99284

== ENCOUNTER 2020-02-12 05:57 | Emergency (ER) | payer OTHER ==
[2020-02-12 06:39] LABS: ABSOLUTE EOSINOPHILS # (AUTO) 0.1 10^3/uL (0.0-0.6); ABSOLUTE LYMPHOCYTES (AUTO) 1.8 10^3/uL (0.5-4.7); ABSOLUTE MONOCYTES (AUTO) 0.5 10^3/uL (0.1-1.4); ABSOLUTE NEUT (AUTO) 3.4 10^3/uL (1.7-8.2); BASOPHILS % (AUTO) 0.6 % (0-2); EOSINOPHILS % (AUTO) 1.1 % (0-6); HEMOGLOBIN 13.5 g/dL (12.0-15.5); LYMPHOCYTES % (AUTO) 31.3 % (13-45); MEAN CORPUSCULAR HEMOGLOBIN 30.7 pg (27.0-33.4); MEAN CORPUSCULAR HGB CONC 34.5 g/dL (32.0-36.0); MEAN CORPUSCULAR VOLUME 89 fl (80-97); MONOCYTES % (AUTO) 8.7 % (3-13); PLATELET COUNT 243 10^3/uL (150-450); RED BLOOD COUNT 4.38 10^6/uL (3.72-5.28); RED CELL DISTRIBUTION WIDTH 13.1 % (11.5-14.0); SEGMENTED NEUTROPHILS % (AUTO) 58.3 % (42-78); TOTAL CELLS COUNTED % (AUTO) 100 %; WHITE BLOOD COUNT 5.9 10^3/uL (4.0-10.5)
--- NOTE | 2020-02-12 06:39 | ER Document Report ---
Entered by DANIA HUDSON SCRIBE 02/12/20 0638 Acting as scribe for:LEN RODRIGUEZ MD ED Blood Pressure Problem - General Chief Complaint: High Blood Pressure Stated Complaint: HYPERTENSION,DIZZINESS Time Seen by Provider: 02/12/20 06:12 Primary Care Provider: SARITA LEIGH DO [Primary Care Provider] - Follow up as needed Mode of Arrival: Medic Information source: Patient Notes: This 54 year old female patient presents to the emergency department today with complaints of a blood pressure of 187/93 with a heart rate of 133 this morning at 5:45 AM. Patient states that she usually is always up at this time of day, and she routinely checks her blood pressure in the mornings like this as well. When the patient saw her pressures this high she took 0.1 mg of Catapres prior to arrival. Patient is on Micardis and metoprolol daily as well for pressures. Patient has been here for similar episodes in the past according to [facility] records. TRAVEL OUTSIDE OF THE [place] IN LAST 30 DAYS: No - Related Data Allergies/Adverse Reactions: No Known Allergies Allergy (Verified 11/25/18 19:05) Past Medical History - General Information source: Patient - Social History Smoking Status: Never Smoker Cigarette use (# per day): No Chew tobacco use (# tins/day): No Frequency of alcohol use: None Drug Abuse: None Lives with: Family Family History: Reviewed & Not Pertinent Patient has homicidal ideation: No - Past Medical History Cardiac Medical History: Reports: Hx Hypercholesterolemia, Hx Hypertension Surgical Hx: Negative - Immunizations Immunizations up to date: Yes Hx Diphtheria, Pertussis, Tetanus Vaccination: Yes Review of Systems - Review of Systems Constitutional: No symptoms reported EENT: No symptoms reported Cardiovascular: See HPI, Other - 187/93, HR of 133 Respiratory: No symptoms reported Gastrointestinal: See HPI, Nausea. denies: Vomiting Genitourinary: No symptoms reported Female Genitourinary: No symptoms reported Musculoskeletal: No symptoms reported Skin: No symptoms reported Hematologic/Lymphatic: No symptoms reported Neurological/Psychological: No symptoms reported -: Yes All other systems reviewed and negative Physical Exam - Vital signs Vitals: Temp 98.7 F 02/12/20 06:03 - Notes Notes: Physical Exam: General: Alert, appears well. HEENT: Normocephalic. Atraumatic. PERRL. Extraocular movements intact. Oropharynx clear. Neck: Supple. Non-tender. Respiratory: No respiratory distress. Clear and equal breath sounds bilaterally. Cardiovascular: Regular rate and rhythm. Abdominal: Normal Inspection. Non-tender. No distension. Normal Bowel Sounds. Back: No gross abnormalities. Extremities: Moves all four extremities. Upper extremities: Normal inspection. Normal ROM. Lower extremities: Normal inspection. No edema. Normal ROM. Neurological: Normal cognition. AAOx4. Normal speech. Psychological: Normal affect. Normal Mood. Skin: Warm. Dry. Normal color. Course - Re-evaluation Re-evalutation: 02/12/20 07:27 At this time the patient's pressure is 122/79 with a pulse of 60. There is been no intervention provided since the patient arrived. - Vital Signs Vital signs: Temp Pulse Resp BP Pulse Ox 98.7 F 19 117/72 100 02/12/20 06:03 02/12/20 06:46 02/12/20 06:46 02/12/20 06:46 - Laboratory Result Diagrams: 02/12/20 06:20 02/12/20 06:20 Laboratory results interpreted by me: 02/12/20 02/12/20 06:20 06:53 Chloride 108 H Urine Blood SMALL H Ur Leukocyte Esterase TRACE H - Diagnostic Test Radiology reviewed: Image reviewed, Reports reviewed - Chest x-ray does not show acute process. - EKG Interpretation by [facility] EKG shows normal: Sinus rhythm, Blairs, Intervals, QRS Complexes, ST-T Waves Rate: Normal - 62 Rhythm: NSR Discharge - Discharge Clinical Impression: Tachycardia with hypertension, Anxiety about health Condition: Stable Disposition: HOME, SELF-CARE Additional Instructions: Since you arrived in the emergency room, your blood pressure and heart rate have been completely normal. You should continue your regularly prescribed medications and use the clonidine as needed for elevated blood pressure. Follow-up with your primary care provider in the next few days to discuss this episode and see if he wants to make any medication changes for you. RETURN TO THE EMERGENCY ROOM IF ANY NEW OR WORSENING SYMPTOMS. Referrals: SARITA LEIGH DO [Primary Care Provider] - Follow up as needed I personally performed the services described in the documentation, reviewed and edited the documentation which was dictated to the scribe in my presence, and it accurately records my words and actions.
[2020-02-12 06:54] LABS: ALBUMIN 3.9 g/dL (3.5-5.0); ALKALINE PHOSPHATASE 68 U/L (38-126); ANION GAP 6 (5-19); ASPARTATE AMINO TRANSFERASE 26 U/L (14-36); BILIRUBIN,TOTAL 0.7 mg/dL (0.2-1.3); BLOOD UREA NITROGEN 16 mg/dL (7-20); CALCIUM 8.9 mg/dL (8.4-10.2); CARBON DIOXIDE 24 mmol/L (22-30); CHLORIDE 108 mmol/L (98-107); CREATINE KINASE 86 U/L (30-135); GLUCOSE 107 mg/dL (75-110); TOTAL PROTEIN 7.1 g/dL (6.3-8.2)
[2020-02-12 07:06] LABS: APPEARANCE,URINE CLEAR; BILIRUBIN,URINE NEGATIVE (NEGATIVE); COLOR,URINE YELLOW; GLUCOSE, URINE NEGATIVE (NEGATIVE); KETONES,URINE NEGATIVE (NEGATIVE); LEUKOCYTE ESTERASE,URINE TRACE (NEGATIVE); NITRITE,URINE NEGATIVE (NEGATIVE); PROTEIN,URINE NEGATIVE (NEGATIVE); URINE SPECIFIC GRAVITY 1.014; UROBILINOGEN,URINE NEGATIVE mg/dL (<2.0)
--- NOTE | 2020-02-12 07:26 | RADIOLOGY REPORT (SQ) ---
EXAM DESCRIPTION: XR CHEST 1 VIEW COMPLETED DATE/TME: 02/12/2020 06:35 CLINICAL HISTORY: 54 years, Female, Hypertension, tachycardia COMPARISON: 05/12/2019 NUMBER OF VIEWS: One TECHNIQUE: AP view the chest LIMITATIONS: None. FINDINGS: The lungs are clear. The heart is normal in size. There is no pneumothorax or pleural effusion. There is no acute fracture. IMPRESSION: No acute cardiopulmonary abnormality. copyright 2010 [employer]- All Rights Reserved
[2020-02-12 08:09] VITALS: BP 122/83
--- NOTE | 2020-02-12 19:37 | EKG REPORT ---
SEVERITY:- NORMAL ECG - SINUS RHYTHM : Confirmed by: Josefa Mccormick 12-Feb-2020 19:36:40
== END 2020-02-12 08:15 | disposition home or self-care (01) ==
LOC: ER 05:57
DX: I10 Essential (primary) hypertension (principal); F41.9 Anxiety disorder, unspecified; R00.0 Tachycardia, unspecified; R11.0 Nausea; Z79.899 Other long term (current) drug therapy
CPT/HCPCS: 36415; 71045; 80053; 81001; 82550; 83735; 84443; 84484; 85025; 93005; 93010; 99284